=== PATIENT | female | born 1975 | race Caucasian/White ===

== ENCOUNTER 2017-02-16 17:43 | Emergency (ER) | payer OTHER ==
[~2017-02-16] VITALS: Wt 79.5 kg
[~2017-02-16 17:43] MED LIST: ASPI81TA3 PO; CIPR500T4 PO; DOCU-144 PO; HYDR-905 PO; LEVO200T6 PO
--- NOTE | 2017-02-16 21:47 | ERA ---
ER Documentation Chief Complaint Date/Time DATE: 02/16/17 TIME: 21:46 Chief Complaint BILAT LOWER EXTREMITY SWELLING X1DAY LEFT LEG RED/WARM HPI The patient is a 41-year-old female, presenting to the ER because of bilateral lower extremity redness and swelling, more the left than the right for 2 days. She also complains of bilateral ear pain for 2 days. He denies fever, chills, cough, neck pain, chest pain, dyspnea, abdominal pain, vomiting, dysuria, diarrhea,. She smokes socially, denies drinking, denies traveling Past medical history: Hypothyroidism Past surgical history: Thyroidectomy ROS All systems reviewed and are negative except as per history of present illness. Medications Home Meds Active Scripts Sulfamethoxazole/Trimethoprim* (Bactrim Ds* Tablet) 1 Each Tablet, 1 TAB PO BID , #20 TAB Prov:OPAL PRAJAPATI MD 02/17/17 Cephalexin* (Keflex*) 500 Mg Capsule, 500 MG PO Q6, #40 CAP Prov:OPAL PRAJAPATI MD 02/17/17 Reported Medications Levothyroxine Sodium* (Levothyroxine Sodium*) 200 Mcg Tablet, 200 MCG PO DAILY, #30 TAB 06/07/16 Discontinued Reported Medications Aspirin* (Aspirin* Chew) 81 Mg Tab.chew, 162 MG PO DAILY, TAB.CHEW 06/07/16 Docusate Sodium* (Colace*) 100 Mg Capsule, 100 MG PO BID 01/30/14 Discontinued Scripts Ciprofloxacin Hcl* (Ciprofloxacin Hcl*) 500 Mg Tablet, 500 MG PO BID for 12 Days , TAB Prov:APOLLO CHO 06/10/16 Hydrocodone/Acetaminophen ([place] 7.5-325 Tablet) 1 Each Tablet, 1 EACH PO Q6H, # 20 TAB Prov:APOLLO CHO 06/10/16 Allergies Allergies: Coded Allergies: No Known Allergy (Unverified , 02/16/17) PMhx/Soc History of Surgery: Yes (thyroidectomy) Anesthesia Reaction: No Hx Neurological Disorder: No Hx Respiratory Disorders: No Hx Cardiac Disorders: No Hx Psychiatric Problems: No Hx Miscellaneous Medical Probl: No Hx Alcohol Use: No Hx Substance Use: No Hx Tobacco Use: No Physical Exam Vitals Vital Signs Date Time Temp Pulse Resp B/P Pulse Ox O2 Delivery O2 Flow Rate FiO2 02/16/17 22:15 81 18 142/75 99 Room Air 4/27/17 18:12 99.3 88 20 138/89 100 Physical Exam Const: No acute distress. Head: Atraumatic. Eyes: Normal Conjunctiva. ENT: Normal External Ears, Nose and Mouth. Bilateral tympanic membranes and oropharynx are within normal limits Neck: Full range of motion. No meningismus. Resp: Clear to auscultation bilaterally. Cardio: Regular rate and rhythm, no murmurs. Abd: Soft, non distended, normal bowel sounds, non tender. Skin: No petechiae or rashes. Back: No midline or flank tenderness. Ext: Bilateral lower extremity with mild edema, mild erythema more on the left than the right, vague and minimal calf tenderness Neur: Awake and alert. No focal deficit Psych: Normal Mood and Affect. Results 24 hrs Laboratory Tests Test 02/16/17 23:48 Bedside Urine pH (LAB) 6.0 Bedside Urine Protein (LAB) 1+ Bedside Urine Glucose (UA) Negative Bedside Urine Ketones (LAB) Negative Bedside Urine Blood 2+ Bedside Urine Nitrite (LAB) Positive Bedside Urine Leukocyte Esterase (L Trace Current Medications Medications (Trade) Dose Ordered Sig/Carleen Route PRN Reason Start Time Stop Time Status Last Admin Dose Admin Acetaminophen/ Hydrocodone Bitart ([place] (10/325)) 1 tab ONCE ONCE PO 02/16/17 22:30 02/16/17 22:31 DC 02/16/17 22:20 Ondansetron HCl (Zofran Odt) 4 mg ONCE STAT ODT 02/16/17 22:07 02/16/17 22:09 DC 02/16/17 22:20 Procedures/[place] [id number] Radiology Main Line: [phone] DIAGNOSTIC IMAGING REPORT Patient: EVERTON YARBROUGH : 1975 Age: 41 Sex: F MR #: [id number] [facility] #: [id number] DOS: 02/16/17 0000 Ordering MD: OPAL PRAJAPATI MD Location: E/R Room/Bed: PROCEDURE: XR Chest. CLINICAL INDICATION: Cough. TECHNIQUE: Single frontal view of the chest. COMPARISON: 06/14/2016. FINDINGS: The cardiomediastinal silhouette is within normal limits. The lungs are clear. No signs of pleural fluid or pneumothorax are seen. The osseous structures and soft tissues are unremarkable. IMPRESSION: No evidence for active cardiopulmonary disease. RPTAT: UU Physician Awa Date Time Electronically viewed and signed by Physician Awa on 02/16/2017 23:31 RS/ CC: OPAL PRAJAPATI MD [place] [id number] Radiology Main Line: [phone] DIAGNOSTIC IMAGING REPORT Patient: EVERTON YARBROUGH : 1975 Age: 41 Sex: F MR #: [id number] DOS: 02/16/177 Ordering MD: OPAL PRAJAPATI MD Location: E/R Room/Bed: PROCEDURE: ULTRASOUND BILATERAL LOWER EXTREMITY VENOUS CLINICAL INDICATION: 41-year-old female with lower extremity pain. TECHNIQUE: Multiple sonographic images of the bilateral lower extremity deep venous system was obtained utilizing grayscale, color-flow, compressive sonography and doppler imaging with augmentation. The images were reviewed on a PACS workstation. COMPARISON: Bilateral lower extremity venous ultrasound June 08, 2016. FINDINGS: There is normal compressibility and flow within the common femoral, deep femoral , superficial femoral, popliteal, posterior tibial and peroneal veins. IMPRESSION: No sonographic evidence for deep venous thrombosis. .Rajan Rubin MD, MD Date Time Electronically viewed and signed by .Rajan Rubin MD, on 02/16/2017 23:34 .M/ CC: OPAL PRAJAPATI MD MEDICAL MAKING DECISION: The patient is a 41-year-old female, presenting with acute bilateral lower extremity cellulitis, acute cystitis. She was treated with [place] 10 mg p.o. for pain, Zofran ODT for nausea with good response. The differential diagnoses considered include but are not limited to cellulitis , coccidiomycosis, DVT Departure Diagnosis: Primary Impression: Cellulitis Additional Impression: UTI (urinary tract infection) Condition: Good Comments She was discharged with Keflex, Bactrim DS, Kenalog cream I discussed the findings with the patient. I advised the patient to follow-up with the primary physician in about 1-2 days, sooner if needed and return if any concern. The patient's blood pressure was elevated (>120/80) but appears stable without evidence of hypertension emergency or urgency. The patient was counseled about the risks of hypertension and urged to pursue outpatient monitoring and therapy within a week with their primary care physician. OPAL PRAJAPATI MD Feb 16, 2017 21:47
[2017-02-16] MEDS ORDERED: ONDANSETRON (ODT) 4 MG TAB ODT STA (22:07)
[2017-02-16] MEDS ORDERED: HYDROCODONE/APAP (10/325) TAB PO ONE (22:30)
--- NOTE | 2017-02-16 23:32 | RADRPT ---
PROCEDURE: XR Chest. CLINICAL INDICATION: Cough. TECHNIQUE: Single frontal view of the chest. COMPARISON: 06/14/2016. FINDINGS: The cardiomediastinal silhouette is within normal limits. The lungs are clear. No signs of pleural f luid or pneumothorax are seen. The osseous structures and soft tissues are unremarkable. IMPRESSION: No evidence for active cardiopulmonary disease. RPTAT: UU Physician Awa Date Time Electronically viewed and signed by Sukumar Coy Physician on 02/16/2017 23:31 RS/
--- NOTE | 2017-02-16 23:34 | RADRPT ---
PROCEDURE: ULTRASOUND BILATERAL LOWER EXTREMITY VENOUS CLINICAL INDICATION: 41-year-old female with lower extremity pain. TECHNIQUE: Multiple sonographic images of the bilateral lower extremity deep venous system was obt ained utilizing grayscale, color-flow, compressive sonography and doppler imaging with augmentation. The images were reviewed on a PACS workstation. COMPARISON: Bilateral lower extremity venous ultrasound June 08, 2016. FINDINGS: There is normal compressibility and flow within the common femoral, deep femoral, superficial femora l, popliteal, posterior tibial and peroneal veins. IMPRESSION: No sonographic evidence for deep venous thrombosis. .Rajan Rubin MD, MD Date Time Electronically viewed and signed by .Rajan Rubin MD, MD on 02/16/2017 23:34 .Tonya/
[2017-02-16 23:47] LABS: URINE BLOOD (Dip) POC 2+ (NEGATIVE)
[2017-02-17] MEDS ORDERED: CEPH-443 PO (00:30)
[2017-02-17] MEDS ORDERED: SULF1TAB31 PO (00:30)
[2017-02-17] MEDS ORDERED: KEN1O TOP (00:34)
[2017-02-17 00:50] VITALS: BP 135/81; PULSE 67; RESP 18; TEMP 99.1
== END 2017-02-17 00:50 | disposition home or self-care (01) ==
LOC: E/R 17:43
DX: L03.115 Cellulitis of right lower limb (principal); L03.116 Cellulitis of left lower limb; E03.9 Hypothyroidism, unspecified; Z79.82 Long term (current) use of aspirin
CPT/HCPCS: 71010; 81003; 93970; Z7502; Z7610

== ENCOUNTER 2017-02-27 18:10 | Inpatient (IN) | payer OTHER ==
[~2017-02-27] VITALS: Ht 162.6 cm; Wt 90.0 kg
[~2017-02-27 18:10] MED LIST changes: -ASPI81TA3 PO; +CEPH-443 PO; -CIPR500T4 PO; -DOCU-144 PO; -HYDR-905 PO; +KEN1O TOP; +SULF1TAB31 PO
[2017-02-27] MEDS ORDERED: PIPER-TAZO 3.375 GM IV (PMX) 100 ML IVPB STA (21:09)
[2017-02-27] MEDS ORDERED: ONDANSETRON 4 MG INJ IV STA (21:09)
[2017-02-27] MEDS ORDERED: HYDROmorphONE 1 MG/ML SYG IV STA (21:09)
[2017-02-27] MEDS ORDERED: SOD CHLORIDE 0.9% 1,000 ML IV STA (21:09)
[2017-02-27] MEDS ORDERED: VANCOMYCIN 1 GM (PMX) 250 ML IVPB SCH (21:30)
[2017-02-27 21:35] LABS: ADD SCAN DIFF NO
[2017-02-27 21:37] LABS: BASOPHIL # 0.1 10^3/ul (0.0-0.1); BASOPHILS % 1.2 % (0.0-2.0); EOSINOPHILS # 0.2 10^3/ul (0.0-0.5); EOSINOPHILS % 2.8 % (0.0-7.0); HEMATOCRIT 30.9 % (37.0-47.0); HEMOGLOBIN 9.9 g/dl (12.0-16.0); LYMPHOCYTES # 2.6 10^3/ul (0.8-2.9); LYMPHOCYTES % 30.7 % (15.0-51.0); MEAN CORPUSCULAR HEMOGLOBIN 28.2 pg (29.0-33.0); MEAN PLATELET VOLUME 10.6 fl (7.4-10.4); MONOCYTE # 0.8 10^3/ul (0.3-0.9); MONOCYTES % 9.4 % (0.0-11.0); NEUTROPHIL # 4.8 10^3/ul (1.6-7.5); NEUTROPHILS % 55.7 % (39.0-77.0); PLATELET COUNT 387 10^3/UL (140-415); RED BLOOD COUNT 3.51 10^6/ul (4.20-5.40); RED CELL DISTRIBUTION WIDTH 14.1 % (11.5-14.5); WHITE BLOOD COUNT 8.5 10^3/ul (4.8-10.8)
--- NOTE | 2017-02-27 21:49 | ERA ---
ER Documentation Chief Complaint Date/Time DATE: 02/27/17 TIME: 21:47 Chief Complaint BILATERAL LEG PAIN HPI This 41-year-old female who seen her last week for left lower extremity cellulitis treated with Bactrim and Keflex. She stated her left leg cellulitis is improved and nearly gone however she developed some right leg erythema swelling and warmth with subjective fevers the past 2 days. No pain in the calf thigh there is shortness of breath or chest pain no headache fever vomiting diarrhea. She describes the pain is constant worse with movement better with rest ROS All systems reviewed and are negative except as per history of present illness. Medications Home Meds Reported Medications Levothyroxine Sodium* (Levothyroxine Sodium*) 200 Mcg Tablet, 200 MCG PO DAILY, #30 TAB 06/07/16 Discontinued Scripts Triamcinolone Acetonide* (Kenalog*) 0.1%-15GM Oint, 1 APPLIC TOP BID for 7 Days , #1 EA Prov:OPAL PRAJAPATI MD 02/17/17 Sulfamethoxazole/Trimethoprim* (Bactrim Ds* Tablet) 1 Each Tablet, 1 TAB PO BID , #20 TAB Prov:OPAL PRAJAPATI MD 02/17/17 Cephalexin* (Keflex*) 500 Mg Capsule, 500 MG PO Q6, #40 CAP Prov:OPAL PRAJAPATI MD 02/17/17 Allergies Allergies: Coded Allergies: No Known Allergy (Unverified , 02/27/17) PMhx/Soc History of Surgery: Yes (thyroidectomy) Anesthesia Reaction: No Hx Neurological Disorder: No Hx Respiratory Disorders: No Hx Cardiac Disorders: No Hx Psychiatric Problems: No Hx Miscellaneous Medical Probl: No Hx Alcohol Use: No Hx Substance Use: No Hx Tobacco Use: No Smoking Status: Never smoker FmHx Family History: No coronary disease Physical Exam Vitals Vital Signs Date Time Temp Pulse Resp B/P Pulse Ox O2 Delivery O2 Flow Rate FiO2 02/27/17 18:16 99.0 98 18 121/58 99 Physical Exam Const: Well-developed, well-nourished Head: Atraumatic, normocephalic Eyes: Normal Conjunctiva, PERRLA, EOMI, normal sclera, no nystagmus ENT: Normal External Ears, Nose and Mouth, moist mucus membranes. Neck: Full range of motion. No meningismus, no lymphadenopathy. Resp: Clear to auscultation bilaterally, no wheezing, rhonchi, rales Cardio: Regular rate and rhythm, no murmurs, S1 S2 present Abd: Soft, non tender x 4, non distended. Normal bowel sounds, no guarding or rebound, no pulsitile abdominal masses or bruits Skin: No petechiae or rashes, no ecchymosis , no maculopapular rash Back: No midline or flank tenderness Ext: No cyanosis, or edema, FROM x 4, normal inspection, neurovascularly intact x 4, left lower extremity has some very mild pink discoloration to the lateral malleolus. The right lower extremity has some circumferential cellulitis involving the distal tib-fib ankle and foot with moderate to severe swelling and erythema and warmth. Neur: Awake and alert, STR 5/5 x 4, sensation intact x 4, no focal findings, cerebellum intact Psych: Normal Mood and Affect Results 24 hrs Current Medications Medications (Trade) Dose Ordered Sig/Carleen Route PRN Reason Start Time Stop Time Status Last Admin Dose Admin Sodium Chloride (NS) 1,000 ml @ 1,000 mls/hr Q1H STAT IV 02/27/17 21:09 02/27/17 22:08 02/27/17 21:36 Hydromorphone HCl (Dilaudid) 1 mg ONCE STAT IV 02/27/17 21:09 02/27/17 21:17 DC 02/27/17 21:36 Ondansetron HCl 4 mg 4 mg ONCE STAT IV 02/27/17 21:09 02/27/17 21:17 DC 02/27/17 21:36 Piperacillin Sod/ Tazobactam Sod 100 ml @ 200 mls/hr ONCE STAT IVPB 02/27/17 21:09 02/27/17 21:38 DC 02/27/17 21:36 Vancomycin HCl (Vancocin) 250 ml @ 125 mls/hr ONCE IVPB 02/27/17 21:30 02/27/17 23:29 Procedures/MDM Patient has failed outpatient therapy for the left leg cellulitis although has come much better. The right leg is now much worse even though she has been taking antibiotics. We will draw blood cultures and give cefepime and vancomycin, We will admit her to the hospital for intravenous antibiotic therapy Departure Diagnosis: Primary Impression: Cellulitis of right leg Condition: Stable DREW HUFFMAN DO February 27, 2017 21:49
[2017-02-27 21:54] LABS: ALBUMIN 4.5 g/dl (3.3-4.9); ALBUMIN/GLOBULIN RATIO 1.18; BILIRUBIN,INDIRECT 0.8 mg/dl (0-1.1); BILIRUBIN,TOTAL 0.8 mg/dl (0.2-1.3); CALCIUM 9.1 mg/dl (8.4-10.2); POTASSIUM 3.8 mmol/L (3.5-5.1); TOTAL PROTEIN 8.3 g/dl (6.1-8.1)
[2017-02-27] MEDS ORDERED: ONDANSETRON 4 MG INJ IV PRN (22:30)
[2017-02-27] MEDS ORDERED: ACETAMINOPHEN 325 MG TAB PO PRN (22:30)
[2017-02-27 23:17] VITALS: TEMP 98
[2017-02-27 23:53] VITALS: BP 118/75; RESP 16
[2017-02-28] MEDS ORDERED: ACETAMINOPHEN 325 MG TAB PO PRN (00:30)
[2017-02-28] MEDS: CEFTRIAXONE 1 GM/50 ML (PMX) 50 ML IVPB SCH ×2 (00:37→23:47)
[2017-02-28] MEDS: SOD CHLORIDE 0.9% 1,000 ML IV SCH ×3 (00:37→21:16)
[2017-02-28 00:55] VITALS: Ht 162.6 cm; Wt 90.0 kg
[2017-02-28] MEDS: LEVOTHYROXINE 100 MCG TAB PO SCH (05:39)
[2017-02-28] MEDS: PANTOPRAZOLE (EC) 40 MG TAB PO SCH (05:39)
[2017-02-28 06:08] LABS: ADD SCAN DIFF NO
[2017-02-28 06:12] LABS: BASOPHIL # 0.1 10^3/ul (0.0-0.1); BASOPHILS % 1.4 % (0.0-2.0); EOSINOPHILS # 0.2 10^3/ul (0.0-0.5); EOSINOPHILS % 3.5 % (0.0-7.0); HEMATOCRIT 30.7 % (37.0-47.0); HEMOGLOBIN 9.7 g/dl (12.0-16.0); LYMPHOCYTES # 2.6 10^3/ul (0.8-2.9); LYMPHOCYTES % 39.2 % (15.0-51.0); MEAN CORPUSCULAR HEMOGLOBIN 28.1 pg (29.0-33.0); MEAN CORPUSCULAR HGB CONC 31.6 g/dl (32.0-37.0); MEAN PLATELET VOLUME 10.3 fl (7.4-10.4); MONOCYTE # 0.6 10^3/ul (0.3-0.9); MONOCYTES % 8.5 % (0.0-11.0); NEUTROPHIL # 3.1 10^3/ul (1.6-7.5); NEUTROPHILS % 47.1 % (39.0-77.0); PLATELET COUNT 312 10^3/UL (140-415); RED BLOOD COUNT 3.45 10^6/ul (4.20-5.40); RED CELL DISTRIBUTION WIDTH 14.2 % (11.5-14.5); WHITE BLOOD COUNT 6.6 10^3/ul (4.8-10.8)
[2017-02-28 07:30] VITALS: BP 117/70; RESP 20
[2017-02-28 07:30] LABS: ALBUMIN 3.5 g/dl (3.3-4.9); ALBUMIN/GLOBULIN RATIO 1.09; BILIRUBIN,INDIRECT 0.7 mg/dl (0-1.1); BILIRUBIN,TOTAL 0.7 mg/dl (0.2-1.3); CALCIUM 8.2 mg/dl (8.4-10.2); CREATININE 0.8 mg/dl (0.44-1.00); POTASSIUM 4.4 mmol/L (3.5-5.1); TOTAL PROTEIN 6.7 g/dl (6.1-8.1)
[2017-02-28] MEDS: ENOXAPARIN 40 MG/0.4 ML SYG SC SCH (08:56)
[2017-02-28 20:56] VITALS: BP 107/60; RESP 16
[2017-02-28] MEDS: HYDROmorphONE 1 MG/ML SYG IV PRN (21:12)
--- NOTE | 2017-02-28 21:46 | QN ---
Documentation Comment [id number] YAIR PEÑALOZA MD February 28, 2017 21:45
--- NOTE | 2017-03-01 03:10 | HP ---
DATE OF ADMISSION: 02/27/2017 HISTORY OF PRESENT ILLNESS: The patient with history of pyelonephritis, fatty liver, transaminitis, obesity, history of hypothyroidism. Presented with lower extremity redness and cellulitis and is a dmitted for further management. PAST MEDICAL HISTORY: Positive for Klebsiella pneumoniae sepsis, ____ status post thyroidectomy and radiation treatment. ALLERGIES: NEGATIVE. FAMILY HISTORY: Negative. SOCIAL HISTORY: Negative. MEDICATION HISTORY: The patient's home medications include the patient is on levothyroxine. The patient is currently on: 1. Tylenol. 2. Rocephin. 3. Lovenox. 4. Levothyroxine. REVIEW OF SYSTEMS: HEENT: Unremarkable. RESPIRATORY: Unremarkable. CARDIOVASCULAR: Unremarkable. ABDOMEN: Unremarkable. EXTREMITIES: Complaining of swelling and redness of both lower extremities. PHYSICAL EXAMINATION: GENERAL: The patient is mildly overweight female, awake, alert. VITAL SIGNS: Stable. HEENT: Head is atraumatic, normocephalic. Pupils equal, reactive to light. NECK: Supple. No JVD. LUNGS: Clear. CARDIOVASCULAR: S1, S2 are normal. ABDOMEN: Soft, nontender. Bowel sounds present. No palpable mass or hepatosplenomegaly. No guard ing, rebound tenderness. EXTREMITIES: There is no cyanosis, clubbing. Edema positive. SKIN: Lower extremities have redness and tenderness of both lower extremities. CENTRAL NERVOUS SYSTEM: The patient is awake, alert. No focal deficit. LABORATORY DATA: Hematocrit 30.7. IMPRESSION: 1. Lower extremity cellulitis. 2. History of hypothyroidism. 3. History of thyroid cancer, status post surgery and radiation. PLAN: Continue home medication, wound care, antibiotic. The patient is currently on Lovenox, [place] nix, levothyroxine. The patient is on Rocephin, which will be continued. Orders were done. Dictated By: YAIR RAMACHANDRAN/NTS Conf#: [id number] DID#: [id number]
[2017-03-01] MEDS: HYDROmorphONE 1 MG/ML SYG IV PRN ×2 (03:23→20:28)
[2017-03-01] MEDS: PANTOPRAZOLE (EC) 40 MG TAB PO SCH (05:35)
[2017-03-01] MEDS: LEVOTHYROXINE 100 MCG TAB PO SCH (05:36)
[2017-03-01 07:57] VITALS: BP 138/83; RESP 16
[2017-03-01] MEDS: ENOXAPARIN 40 MG/0.4 ML SYG SC SCH (08:47)
[2017-03-01] MEDS: HYDROCODONE/APAP (5/325) TAB PO PRN (09:08)
--- NOTE | 2017-03-01 14:09 | RADRPT ---
PROCEDURE: US Lower extremity Venous. CLINICAL INDICATION: Pain and swelling TECHNIQUE: Multiple sonographic images of the bilateral lower extremity deep venous system was obt ained utilizing grayscale, color-flow, compressive sonography and doppler imaging with augmentation. The images were reviewed on a PACS workstation. COMPARISON: None. FINDINGS: There is normal compressibility and flow within the bilateral common femoral, deep femoral, superfic ial femoral and popliteal veins. Normal respiratory variation and augmentation is seen. There is normal color flow and compressibility of bilateral posterior tibial and peroneal veins IMPRESSION: No sonographic evidence for bilateral lower extremity deep venous thrombosis. RPTAT: HH .Mansoor Newby MD, MD Date Time Electronically viewed and signed by .Mansoor Newby MD, on 03/01/2017 14:08 .W/
--- NOTE | 2017-03-01 14:18 | RADRPT ---
PROCEDURE: XR Right Foot CLINICAL INDICATION: Possible fracture TECHNIQUE: AP, oblique, and lateral radiographs were submitted. COMPARISON: None FINDINGS: Osseous structures: appear well mineralized and intact with no fracture or destructive process iden tified. There is mild calcaneal spurring at the insertion of the Achilles tendon. Joint spaces: There is a mild hallux valgus. The joint spaces are otherwise unremarkable. Soft tissues: appear unremarkable. IMPRESSION: 1. Minimal calcaneal spurring 2. Mild hallux valgus. 3. Otherwise, unremarkable right foot with no fracture identified. Physician Augusta Date Time Electronically viewed and signed by Physician Augusta on 03/01/2017 14:17 /
[2017-03-01] MEDS: SOD CHLORIDE 0.9% 1,000 ML IV SCH (16:30)
[2017-03-01 20:18] VITALS: BP 103/57; RESP 16
--- NOTE | 2017-03-01 23:57 | PN ---
Date/Time of Note Date/Time of Note DATE: 03/01/17 TIME: 23:56 Assessment/Plan VTE Prophylaxis VTE Prophylaxis Intervention: other Lines/Catheters IV Catheter Type (from Nrsg): Saline Lock Assessment/Plan Chief Complaint/Hosp Course IMPRESSION: 1. Lower extremity cellulitis. 2. History of hypothyroidism. 3. History of thyroid cancer, status post surgery and radiation. plan antbiotic Problems: Subjective 24 Hr Interval Summary Cardiovascular: no complaints Gastrointestinal: no complaints Musculoskeletal: swelling (foot rt) Exam/Review of Systems Vital Signs Vitals Vital Signs Date Time Temp Pulse Resp B/P Pulse Ox O2 Delivery O2 Flow Rate FiO2 03/01/17 20:18 98.5 77 16 103/57 98 02/27/17 23:17 Room Air Intake and Output 02/28/17 02/28/17 03/01/17 15:00 23:00 07:00 Intake Total 1730 ml 1360 ml Output Total 0 ml Balance 1730 ml 1360 ml Exam Neck: supple Respiratory: clear to auscultation Cardiovascular: regular rate and rhythm Gastrointestinal: soft Musculoskeletal: nl extremities to inspection Results Result Diagram: 02/28/17 0545 02/28/17 0545 Medications Medications Current Medications Sodium Chloride (NS) 1,000 ml @ 50 mls/hr Q20H IV Last administered on 21:16; Admin Dose 50 MLS/HR; Start 02/28/17 at 00:30 Pantoprazole (Protonix Tab) 40 mg DAILY@06 PO Last administered on 03/01/17 05 :35; Admin Dose 40 MG; Start 02/28/17 at 06:00 Acetaminophen 650 mg 650 mg Q6H PRN PO PAIN AND OR ELEVATED TEMP; Start at 00:30 Ceftriaxone Sodium (Rocephin) 50 ml @ 100 mls/hr Q24H IVPB Last administered on 02/28/17 23:47; Admin Dose 100 MLS/HR; Start 02/28/17 at 00:30 Acetaminophen/ Hydrocodone Bitart ([place] (5/325)) 1 tab Q6H PRN PO PAIN LEVEL 1 -5 Last administered on 03/01/17 09:08; Admin Dose 1 TAB; Start 02/28/17 at 00: 30 Enoxaparin Sodium (Lovenox) 40 mg DAILY SC Last administered on 03/01/17 08:47 ; Admin Dose 40 MG; Start 02/28/17 at 09:00 Hydromorphone HCl (Dilaudid) 0.75 mg Q4H PRN IV PAIN Last administered on 20:28; Admin Dose 0.75 MG; Start 02/28/17 at 00:30 Levothyroxine Sodium (Synthroid) 200 mcg DAILY@06 PO Last administered on 05:36; Admin Dose 200 MCG; Start 02/28/17 at 06:00 YAIR PEÑALOZA MD March 01, 2017 23:57
[2017-03-02] MEDS: SOD CHLORIDE 0.9% 1,000 ML IV SCH ×3 (00:21→20:34)
[2017-03-02] MEDS: CEFTRIAXONE 1 GM/50 ML (PMX) 50 ML IVPB SCH (00:21)
[2017-03-02] MEDS: HYDROmorphONE 1 MG/ML SYG IV PRN ×4 (00:34→20:34)
[2017-03-02] MEDS: PANTOPRAZOLE (EC) 40 MG TAB PO SCH (05:15)
[2017-03-02] MEDS: LEVOTHYROXINE 100 MCG TAB PO SCH (05:15)
[2017-03-02 07:38] VITALS: BP 120/86; RESP 20
[2017-03-02 09:00] VITALS: BP 120/86; PULSE 71; RESP 20
[2017-03-02] MEDS: HYDROCODONE/APAP (5/325) TAB PO PRN (09:56)
[2017-03-02] MEDS: ENOXAPARIN 40 MG/0.4 ML SYG SC SCH (10:34)
[2017-03-02 15:46] VITALS: BP 146/91; PULSE 83; RESP 16
--- NOTE | 2017-03-02 16:06 | PN ---
Date/Time of Note Date/Time of Note DATE: 03/02/17 TIME: 16:05 Assessment/Plan VTE Prophylaxis VTE Prophylaxis Intervention: other Lines/Catheters IV Catheter Type (from Nrsg): Saline Lock Assessment/Plan Chief Complaint/Hosp Course IMPRESSION: 1. Lower extremity cellulitis. 2. History of hypothyroidism. 3. History of thyroid cancer, status post surgery and radiation. plan antbiotic Problems: Subjective 24 Hr Interval Summary Respiratory: no complaints Cardiovascular: no complaints Exam/Review of Systems Vital Signs Vitals Vital Signs Date Time Temp Pulse Resp B/P Pulse Ox O2 Delivery O2 Flow Rate FiO2 03/02/17 15:46 99.1 83 16 146/91 98 Room Air Intake and Output 03/01/17 03/01/17 03/02/17 15:00 23:00 07:00 Intake Total 1380 ml 1700 ml Balance 1380 ml 1700 ml Exam Neck: supple Respiratory: clear to auscultation Cardiovascular: regular rate and rhythm Gastrointestinal: soft Extremities: edema (LESS) Results Result Diagram: 02/28/17 0545 02/28/17 0545 Medications Medications Current Medications Sodium Chloride (NS) 1,000 ml @ 50 mls/hr Q20H IV Last administered on 00:21; Admin Dose 50 MLS/HR; Start 02/28/17 at 00:30 Pantoprazole (Protonix Tab) 40 mg DAILY@06 PO Last administered on 03/02/17 05 :15; Admin Dose 40 MG; Start 02/28/17 at 06:00 Acetaminophen 650 mg 650 mg Q6H PRN PO PAIN AND OR ELEVATED TEMP; Start at 00:30 Ceftriaxone Sodium (Rocephin) 50 ml @ 100 mls/hr Q24H IVPB Last administered on 03/02/17 00:21; Admin Dose 100 MLS/HR; Start 02/28/17 at 00:30 Acetaminophen/ Hydrocodone Bitart ([place] (5/325)) 1 tab Q6H PRN PO PAIN LEVEL 1 -5 Last administered on 03/02/17 09:56; Admin Dose 1 TAB; Start 02/28/17 at 00: 30 Enoxaparin Sodium (Lovenox) 40 mg DAILY SC Last administered on 03/02/17 10:34 ; Admin Dose 40 MG; Start 02/28/17 at 09:00 Hydromorphone HCl (Dilaudid) 0.75 mg Q4H PRN IV PAIN Last administered on 15:35; Admin Dose 0.75 MG; Start 02/28/17 at 00:30 Levothyroxine Sodium (Synthroid) 200 mcg DAILY@06 PO Last administered on 05:15; Admin Dose 200 MCG; Start 02/28/17 at 06:00 YAIR PEÑALOZA MD March 02, 2017 16:06
[2017-03-02 19:39] VITALS: BP 126/86; PULSE 66; RESP 18
[2017-03-02 19:48] VITALS: BP 128/78; RESP 20
[2017-03-03] MEDS: CEFTRIAXONE 1 GM/50 ML (PMX) 50 ML IVPB SCH (00:15)
[2017-03-03] MEDS: HYDROmorphONE 1 MG/ML SYG IV PRN ×2 (03:30→12:05)
[2017-03-03] MEDS: PANTOPRAZOLE (EC) 40 MG TAB PO SCH (06:00)
[2017-03-03] MEDS: LEVOTHYROXINE 100 MCG TAB PO SCH (06:00)
[2017-03-03 07:36] VITALS: BP 127/82; RESP 16
[2017-03-03] MEDS: ENOXAPARIN 40 MG/0.4 ML SYG SC SCH (10:02)
[2017-03-03 15:52] VITALS: BP 123/83; PULSE 88; RESP 18
--- NOTE | 2017-03-03 17:20 | PDOCDIS ---
Discharge Instructions CONDITION Patient Condition: Stable HOME CARE INSTRUCTIONS: Special Diet: 2gm NA ACTIVITY: Activity Restrictions: Slowly Increase Activity FOLLOW UP/APPOINTMENTS Appointments f/u own pcp 1 wk YAIR PEÑALOZA MD March 03, 2017 17:20
[2017-03-03] MEDS ORDERED: HYDR-3498 PO (17:21)
[2017-03-03] MEDS ORDERED: SULF1TAB31 PO (17:22)
--- NOTE | 2017-03-03 19:05 | PN ---
Date/Time of Note Date/Time of Note DATE: 03/03/17 TIME: 19:05 Assessment/Plan VTE Prophylaxis VTE Prophylaxis Intervention: ambulation Lines/Catheters IV Catheter Type (from Nrsg): Peripheral IV Assessment/Plan Chief Complaint/Hosp Course 1. Lower extremity cellulitis. 2. History of hypothyroidism. 3. History of thyroid cancer, status post surgery and radiation. Problems: Assessment/Plan 1. Discharge orders are given Subjective 24 Hr Interval Summary Constitutional: no complaints Exam/Review of Systems Vital Signs Vitals Vital Signs Date Time Temp Pulse Resp B/P Pulse Ox O2 Delivery O2 Flow Rate FiO2 03/03/17 15:52 97.5 88 18 123/83 98 Room Air Intake and Output 03/02/17 03/02/17 03/03/17 15:00 23:00 07:00 Intake Total 1660 ml 1150 ml Balance 1660 ml 1150 ml Exam Constitutional: alert, oriented Results Result Diagram: 02/28/17 0545 02/28/17 0545 Medications Medications Current Medications Sodium Chloride (NS) 1,000 ml @ 50 mls/hr Q20H IV Last administered on 20:34; Admin Dose 50 MLS/HR; Start 02/28/17 at 00:30 Pantoprazole (Protonix Tab) 40 mg DAILY@06 PO Last administered on 03/03/17 06 :00; Admin Dose 40 MG; Start 02/28/17 at 06:00 Acetaminophen 650 mg 650 mg Q6H PRN PO PAIN AND OR ELEVATED TEMP; Start at 00:30 Ceftriaxone Sodium (Rocephin) 50 ml @ 100 mls/hr Q24H IVPB Last administered on 03/03/17 00:15; Admin Dose 100 MLS/HR; Start 02/28/17 at 00:30 Acetaminophen/ Hydrocodone Bitart ([place] (5/325)) 1 tab Q6H PRN PO PAIN LEVEL 1 -5 Last administered on 03/02/17 09:56; Admin Dose 1 TAB; Start 02/28/17 at 00: 30 Enoxaparin Sodium (Lovenox) 40 mg DAILY SC Last administered on 03/03/17 10:02 ; Admin Dose 40 MG; Start 02/28/17 at 09:00 Hydromorphone HCl (Dilaudid) 0.75 mg Q4H PRN IV PAIN Last administered on 12:05; Admin Dose 0.75 MG; Start 02/28/17 at 00:30 Levothyroxine Sodium (Synthroid) 200 mcg DAILY@06 PO Last administered on 06:00; Admin Dose 200 MCG; Start 02/28/17 at 06:00 ALYSHA KEITA March 03, 2017 19:05
== END 2017-03-03 19:00 | disposition home or self-care (01) | DRG 603 ==
LOC: FTE 18:10 → MS2 22:25
PROVIDERS: ADMIT Internal Medicine Nephrology; ATTEND Internal Medicine Nephrology
DX: L03.115 Cellulitis of right lower limb (principal); E03.9 Hypothyroidism, unspecified; Z85.850 Personal history of malignant neoplasm of thyroid
CPT/HCPCS: 36415; 73630; 80053; 85025; 87040; 93970; 96365; 96375; J0696; J1170; J1650; J2405; J2543; J3370; J7030

== ENCOUNTER 2018-09-21 20:05 | Emergency (ER) | END 2018-09-21 22:50 | disposition home or self-care (01) ==

== ENCOUNTER 2019-03-29 12:00 | Emergency (ER) | payer OTHER ==
[~2019-03-29] VITALS: Wt 110.0 kg
[~2019-03-29 12:00] MED LIST changes: +BENZ-6 PO; +BISM262O23 PO; -CEPH-443 PO; +DOCU-144 PO; +FER325 PO; +HYDR-3601 PO; -KEN1O TOP; +LEVO125T7 PO; +ONDA8TAB14 PO; +PROM6.2515 PO
[2019-03-29] MEDS ORDERED: DIPHENHYDRAMINE 50 MG CAP PO ONE (16:30)
--- NOTE | 2019-03-29 17:19 | ERD ---
ER Documentation Chief Complaint Chief Complaint SENT BY FOR ABNORMAL LABS LOW H/H HPI This is a 43-year-old female presents to the emergency department today after she had a appointment with her primary care physician yesterday with ancillary laboratory work that was obtained and indicated that she received a low hemoglobin. The patient states she has a remote history of thyroid carcinoma with a complete thyroidectomy and radiation treatment with [id number] in 2008. The patient takes 125 mcg of levothyroxine. She does state that she also has a history of anemia. ROS All systems reviewed and are negative except as per history of present illness. Medications Home Meds Reported Medications Levothyroxine Sodium* (Levothyroxine Sodium*) 200 Mcg Tablet, 200 MCG PO DAILY, #30 TAB 06/07/16 Discontinued Scripts Levothyroxine Sodium* (Levothyroxine Sodium*) 125 Mcg Tablet, 125 MCG PO BEFORE BREAKFAST, #30 TAB Prov:JOAQUIM ASH PA-C 11/29/18 Ferrous Sulfate* (Ferrous Sulfate*) 325 Mg Tabec, 325 MG PO DAILY, #30 TAB Prov:JOAQUIM ASH PA-C 11/29/18 Docusate Sodium* (Colace*) 100 Mg Capsule, 100 MG PO TID, #30 CAP Prov:JOAQUIM ASH PA-C 11/29/18 Benzonatate* (Tessalon Perle*) 100 Mg Capsule, 100 MG PO Q8H PRN for COUGH, #30 CAP Prov:JOAQUIM ASH PA-C 11/29/18 Promethazine Hcl* (Promethazine Hcl* Syrup) 6.25 Mg/5 Ml Syrup, 6.25 MG PO Q6H PRN for COUGH, #100 ML Prov:JOAQUIM ASH PA-C 11/29/18 Bismuth Subsalicylate* (Pepto-Bismol*) 262 Mg/15 Ml Oral.susp, 15 ML PO Q3H PRN for DIARRHEA for 3 Days, ML Prov:ROBERT MACK MD 09/21/18 Ondansetron (Ondansetron Odt) 8 Mg Tab.rapdis, 8 MG PO Q6H PRN for NAUSEA AND/OR VOMITING, #8 TAB Prov:ROBERT MACK MD 09/21/18 Levothyroxine Sodium* (Levothyroxine Sodium*) 125 Mcg Tablet, 125 MCG PO BEFORE BREAKFAST, #30 TAB Prov:ROBERT MACK MD 09/21/18 Sulfamethoxazole/Trimethoprim* (Bactrim Ds* Tablet) 1 Each Tablet, 1 TAB PO BID for 7 Days, TAB Prov:YAIR PEÑALOZA MD 03/03/17 Hydrocodone Bit-Acetaminophen (Hydrocodone Bit-APAP) 5-325MG Tablet, 1 TAB PO Q6H PRN for PAIN LEVEL 1-5 for 7 Days, TAB Prov:YAIR PEÑALOZA MD 03/03/17 Allergies Allergies: Coded Allergies: No Known Allergy (Unverified , 03/29/19) PMhx/Soc History of Surgery: Yes (thyroidectomy) Anesthesia Reaction: No Hx Neurological Disorder: No Hx Respiratory Disorders: No Hx Cardiac Disorders: No Hx Psychiatric Problems: No Hx Miscellaneous Medical Probl: Yes (hypothyroidism, Thyroid CA) Hx Alcohol Use: Yes (occassional) Hx Substance Use: No Hx Tobacco Use: No Smoking Status: Never smoker Physical Exam Vitals Vital Signs Date Temp Pulse Resp B/P (MAP) Pulse Ox O2 O2 Flow FiO2 Time Delivery Rate 03/29/19 98.7 79 18 126/95 98 Room Air 15:18 (105) 03/29/19 98.2 74 16 156/91 98 Room Air 14:00 (112) 03/29/19 98.1 91 18 176/94 99 12:09 (121) Physical Exam Constitutional:Well-developed. Well-nourished. HEENT:Normocephalic. Atraumatic.Pupils were equal round reactive to light. Conjunctival pallor Neck: No nuchal rigidity. No lymphadenopathy. No posterior cervical spine tenderness or step-offs. Respiratory: Not using accessory muscles of respiration.Lungs were clear to auscultation bilaterally. No rhonchi. No rales. No wheezing. Cardiovascular: Regular rate regular rhythm.No murmurs. No rubs were appreciated.S1, S2 normal. Distal pulses are palpable 2+ bilaterally Skin: No petechia, no purpura. No lesions on the palms or the soles of the feet. No maculopapular rash. NEURO: Patient was alert, awake, orientated x3.No facial droop. Gait observed and normal with no ataxia.Speech had regular rate and rhythm. No focal n eurological deficits. Result Diagram: 03/29/19 1252 Results 24 hrs Laboratory Tests Test 03/29/19 12:52 03/29/19 13:27 03/29/19 13:28 White Blood Count 6.5 10^3/ul Red Blood Count 3.85 10^6/ul Hemoglobin 6.7 g/dl Hematocrit 24.7 % Mean Corpuscular Volume 64.2 fl Mean Corpuscular Hemoglobin 17.4 pg Mean Corpuscular Hemoglobin Concent 27.1 g/dl Red Cell Distribution Width 19.1 % Platelet Count 408 10^3/UL Mean Platelet Volume 10.2 fl Immature Granulocytes % 0.300 % Neutrophils % % Segmented Neutrophils % (Manual) 48 % Lymphocytes % % Lymphocytes % (Manual) 36 % Reactive Lymphocytes % (Manual) 3 % Monocytes % % Monocytes % (Manual) 5 % Eosinophils % % Eosinophils % (Manual) 4 % Basophils % % Basophils % (Manual) 4 % Nucleated Red Blood Cells % 0.0 /100WBC Immature Granulocytes # 0.020 10^3/ul Neutrophils # 10^3/ul Lymphocytes (Manual) 2.3 10^3/ul Lymphocytes # 10^3/ul Reactive Lymphocytes # 0.1 10^3/ul Monocytes # 10^3/ul Monocytes # (Manual) 0.3 10^3/ul Eosinophils # 10^3/ul Basophils # 10^3/ul Basophils # (Manual) 0.2 10^3/ul Nucleated Red Blood Cells # 10^3/ul Platelet Estimate NORMAL Giant Platelets 4 % Polychromasia 1+ Hypochromasia 1+ Poikilocytosis 2+ Anisocytosis 2+ Microcytosis 2+ Stomatocytes 1+ Iron Level 24 ug/dl Total Iron Binding Capacity 498 ug/dl Percent Iron Saturation 5 % SAT Ferritin 1.9 ng/ml Lactate Dehydrogenase 492 IU/L Current Medications Medications Dose Sig/Carleen Start Time Status Last (Trade) Ordered Route PRN Stop Time Admin Dose Reason Admin 50 mg ONCE ONCE 03/29/19 DC 03/29/19 Diphenhydrami PO 16:30 03/29/19 16:19 ne HCl 16:31 (Benadryl) Procedures/MDM This is a 43-year-old female presented to the emergency department anemic with a hemoglobin of 6.7. The patient had no signs of an upper or lower gastrointestinal bleed. This appeared to be an iron deficiency anemia. The patient did provide a written consent for blood transfusion. She was transfused 1 unit packed red blood cells in the emergency department. She had a significant improvement of her symptoms. She no longer felt weak or dizzy. The patient had no adverse reactions to the transfusion. Observation Note: Time: 4 hours Family Hx: No Hypertension Evaluation: Multiple exams showed improving symptoms and no evidence of worsening of her symptoms and again no adverse reactions to the transfusion. The patient stated she did not want to be admitted to the hospital for observation and follow-up with her primary care physician. Critical Care: Time: 40 minutes Treatments/Evaluations: Close monitoring and treatment of unstable vital signs, cardiorespiratory, and neurologic status, while maintaining tight balance of fluid, respiratory, and cardiac interventions. Time does not include performing any of the above billable procedures. Departure Diagnosis: Primary Impression: Anemia Anemia type: iron deficiency Iron deficiency anemia type: unspecified iron deficiency Qualified Codes: D50.9 - Iron deficiency anemia, unspecified Condition: FREDY Aceves MD Mar 29, 2019 17:19
[2019-03-29 18:13] VITALS: BP 112/64; PULSE 77; RESP 18
== END 2019-03-29 18:16 | disposition home or self-care (01) ==
LOC: E/R 12:00
DX: D50.9 Iron deficiency anemia, unspecified (principal); E03.9 Hypothyroidism, unspecified; Z85.850 Personal history of malignant neoplasm of thyroid
CPT/HCPCS: 36430; 82728; 83540; 83615; 84466; 85025; 86850; 86900; 86901; 86920; P9016; Z7502; Z7610